=== PATIENT | male | born 1985 | race Caucasian/White ===

== ENCOUNTER 2017-01-03 21:58 | Emergency (ER) | payer SELFPAY ==
[2017-01-03] MEDS ORDERED: NO HOME MEDICATION XX (23:22)
== END 2017-01-04 00:17 ==
LOC: EDMED 21:58
PROC: 2W3JX1Z Immobilization of Right Finger using Splint (ICD-10-PCS; principal; 2017-01-03)
DX: S66.304A Unspecified injury of extensor muscle, fascia and tendon of right ring finger at wrist and hand level, initial encounter (principal); X50.1XXA Overexertion from prolonged static or awkward postures, initial encounter; Y93.K1 Activity, walking an animal; Y92.019 Unspecified place in single-family (private) house as the place of occurrence of the external cause; Y99.8 Other external cause status